=== PATIENT | male | born 1990 | race Caucasian/White ===

== ENCOUNTER 2022-10-06 13:01 | Emergency (ER) | payer OTHER, SELFPAY ==
[2022-10-06 13:13] VITALS: BP 146/100; PULSE 98; RESP 16; TEMP 37.6; O2SAT 99; BMI 28.5
--- NOTE | 2022-10-06 13:17 | DI.RAD.S_ITS ---
PROCEDURE: XR FINGER RT MIN 2V INDICATIONS: injury/deformity TECHNIQUE: AP hand, 2 views of the 3 finger(s) acquired. COMPARISON: [facility], CR, FINGER LT, 01/02/2014, 16:18. FINDINGS: Bones: No fractures or dislocations. No suspicious bony lesions. Soft tissues: No suspicious soft tissue calcifications. IMPRESSION: Normal right finger radiographs Approved by: Konrad Cleaning M.D. on 10/06/2022 at 12:55
--- NOTE | 2022-10-06 15:05 | ED.UPPEXIN ---
HPI - Extremity Injury (Upper) General Chief Complaint: Extremity Injury, Upper Stated Complaint: broken or dislocated finger on RT hand Time Seen by Provider: 10/06/22 15:03 Source: patient Mode of arrival: Ambulatory History of Present Illness HPI narrative: Patient is a 32-year-old male who presents with a right index finger dislocation. He is had multiple episodes of dislocations previously. He was out sledding with his kids. Just landed on it funny. He is right-hand dominant. Related Data Previous Rx's Medication Instructions Recorded dextroamphetamine-amphetamine 5 mg 5 mg PO DAILY PRN inattention #30 09/25/22 tablet (Adderall) tabs dextroamphetamine-amphetamine ER 10 mg PO DAILY #30 caps 09/25/22 10 mg 24hr capsule,extend release (Adderall XR) Allergies Allergy/AdvReac Type Severity Reaction Status Date / Time No Known Drug Allergies Allergy Unknown Verified 06/17/21 11:05 [NO KNOWN DRUG ALLERGIES] Review of Systems Review of Systems Narrative: GENERAL: Denies chills,fever HEENT: Denies throat pain RESPIRATORY: Denies dyspnea, cough, wheezing CARDIOVASCULAR: Denies chest pain, palpitations GASTROINTESTINAL: Denies nausea, vomiting MUSCULOSKELETAL: See HPI SKIN: No rash, no laceration, no pruritus NEUROLOGIC: Denies weakness, dizziness, headache, numbness 8 point review of systems is negative except for those stated above and HPI Patient History Medical History Attention deficit disorder (ADD) in adult Family History Father Diabetes mellitus Osteoarthritis Social History Smoking Status: Never smoker Smokeless tobacco user: other (Nicotine vape rarely) alcohol intake: current (Couple drinks on weekend. ) substance use type: former substance user and marijuana (Former ) Smoking Status: Never smoker Substance Use Type: does not use Exam Initial Vital Signs Initial Vital Signs: Vital Signs Temperature 99.6 F 10/06/22 13:13 Pulse Rate 98 H 10/06/22 13:13 Respiratory Rate 16 10/06/22 13:13 Blood Pressure 146/100 H 10/06/22 13:13 Pulse Oximetry 99 10/06/22 13:13 Oxygen Delivery Method 10/06/22 13:13 GENERAL: Well-appearing, well-nourished and in no acute distress. CARDIOVASCULAR: peripheral pulses in tact, cap refill <2 sec RESPIRATORY: No respiratory distress, speaks in full sentences without difficulty EXTREMITIES: Normal range of motion, no clubbing or edema. Neurovascularly intact Right index finger DI he deformity NEUROLOGICAL: Cranial nerves II through XII grossly intact. Normal gait and speech. SKIN: Warm, dry, no petechiae, no rashes or lesions. Procedures Orthopedic Joint Reduction Joint #1: Side: right Joint Reduction Location: finger Analgesia: none Post-reduction neuro exam: intact and no change Post-reduction vascular: intact Post Reduction X-Ray Obtained: No Course Orders Ordered: ED Orders 10/06/22 13:17 XR finger RT min 2V Stat Vital Signs Vital signs: Vital Signs - 8 hr 10/06/22 13:13 Temperature 99.6 F Pulse Rate 98 H Respiratory Rate 16 Blood Pressure 146/100 H Pulse Oximetry 99 Oxygen Delivery Method Room Air MDM - Extremity Injury (Upper) Imaging Data Extremity x-ray #1: Radiologist's Impression: [address] [place] [id number] XRay Report Addendum Patient: Wilian Paiz MR#: [id number] : 1990 Acct:[id number] Age/Sex: 32 / M Date of Service: 10/06/22 Loc: ED Accession Number: [id number] ?? Procedure: XR finger RT min 2V Ordering Provider: Cynthia Sorensen D.O. ADDENDUMCORRECTION Corrected on: 10/06/2022; ? Following is a corrected report.? Please disregard previous report? ? ? PROCEDURE:? XR FINGER RT MIN 2V ? INDICATIONS:? injury/deformity ? TECHNIQUE:? AP hand, 2 views of the 2nd finger(s) acquired.? ? [facility] ? FINDINGS:? ? Bones:? Complete proximal interphalangeal dislocation is noted with dorsal displacement of the middle phalanx.? Associated soft tissue swelling present. ? Soft tissues:? No suspicious soft tissue calcifications.? ? IMPRESSION:? Complete 2nd finger PIP dorsal dislocation without evidence of fracture ? ? ? Approved by: Konrad Cleaning M.D. on 10/06/2022 at 12:55? Dictated by: Konrad Cleaning M.D. on 10/06/2022 at 13:39 ? ? Approved by: Konrad Cleaning M.D. on 10/06/2022 at 13:39 ? Addendum Dictated By: Konrad Cleaning MD Addendum Signed By: Addendum Cosigned By: DD/ TD/TT: 10/06/22 PROCEDURE:? XR FINGER RT MIN 2V ? INDICATIONS:? injury/deformity ? TECHNIQUE:? AP hand, 2 views of the 3 finger(s) acquired.? ? COMPARISON:? [facility], , FINGER LT, 01/02/2014, 16:18. ? FINDINGS:? ? Bones:? No fractures or dislocations.? No suspicious bony lesions.? ? Soft tissues:? No suspicious soft tissue calcifications.? ? IMPRESSION:? Normal right finger radiographs ? ? ? Approved by: Konrad Cleaning M.D. on 10/06/2022 at 12:55? MDM Narrative Medical decision making narrative: Patient has confirmed dislocated DI P finger. It is easily reduced. Bending and moving it easily. Discharge Plan Departure Patient Disposition: Home Clinical Impression: Dislocated finger Instructions: Finger Dislocation Activity Restrictions/Additional Instructions: *You have been diagnosed with finger dislocation *What to do: Osman-tape ice move bend as needed. *Continue to take medications as directed Motrin 600 mg every 6 hours if needed for [id number] *Follow up with your primary care provider in 2-3 days or call [phone] *Return to ER if you should have increasing pain swelling numbness or any new, worsening or concerning symptoms Prescriptions: No Action dextroamphetamine-amphetamine [Adderall XR] 10 mg capsule,extended release 24hr 10 mg PO DAILY Qty: 30 0RF dextroamphetamine-amphetamine [Adderall] 5 mg tablet 5 mg PO DAILY PRN (Reason: inattention) Qty: 30 0RF Referrals: William Gonzales MD [Primary Care Provider] - Visit Report Forms: Patient Portal/API
== END 2022-10-06 15:14 | disposition home or self-care (01) ==
PROVIDERS: Emergency Provider Emergency Medicine; PCP Family Medicine
DX: S63.286A Dislocation of proximal interphalangeal joint of right little finger, initial encounter (principal); Y93.23 Activity, snow (alpine) (downhill) skiing, snowboarding, sledding, tobogganing and snow tubing
CPT/HCPCS: 26770; 73140; 99281; 99283

== ENCOUNTER → 2023-09-28 13:39 | Outpatient (CLI) | payer OTHER, MEDICAID, SELFPAY | PROVIDERS: PCP Family Medicine; Visit Provider Physician Assistant | DX: J02.9 Acute pharyngitis, unspecified (principal) | CPT/HCPCS: 87070; 87147; 87880 ==

== ENCOUNTER 2024-03-26 20:39 | Emergency (ER) | payer SELFPAY ==
[2024-03-26 20:44] VITALS: BP 177/96; PULSE 105; RESP 18; TEMP 37.8; O2SAT 98; BMI 30.7
[2024-03-26 21:00] VITALS: BP 175/112; PULSE 110; O2SAT 96
--- NOTE | 2024-03-26 21:08 | ED.URI ---
HPI - URI/Sore Throat General Chief Complaint: Upper Respiratory Symptoms Stated Complaint: states can't breathe Time Seen by Provider: 03/26/24 20:48 Source: patient Mode of arrival: Ambulatory History of Present Illness HPI Narrative: 34-year-old male presents with nasal congestion, nonproductive cough, shortness of breath. States that cough was initially productive but now is no longer productive. Has been trying NyQuil and Mucinex for symptoms without significant relief. Patient states that when he lays down he feels like his airway is constricted. Denies history of asthma or lung disease. Related Data Previous Rx's Medication Instructions Recorded amoxicillin 500 mg capsule 500 mg PO BID #20 caps 09/30/23 dextroamphetamine-amphetamine 20 10 mg (1/2 x 20 mg) PO BID #60 tabs 02/10/24 mg tablet (Adderall) trazodone 50 mg tablet 50 mg PO BEDTIME #60 tabs 02/10/24 Allergies Allergy/AdvReac Type Severity Reaction Status Date / Time No Known Drug Allergies Allergy Unknown Verified 02/10/24 15:23 [NO KNOWN DRUG ALLERGIES] Patient History Medical History Insomnia Attention deficit disorder (ADD) in adult Family History Father Diabetes mellitus Osteoarthritis Social History Smoking Status: Never smoker Smokeless tobacco user: other (Nicotine vape rarely) alcohol intake: current (Couple drinks on weekend. ) substance use type: former substance user and marijuana (Former ) Smoking Status: Never smoker Substance Use Type: does not use Exam Initial Vital Signs Initial Vital Signs: Vital Signs Temperature 100.1 F H 03/26/24 20:44 Pulse Rate 105 H 03/26/24 20:44 Respiratory Rate 18 03/26/24 20:44 Blood Pressure 177/96 H 03/26/24 20:44 Pulse Oximetry 98 03/26/24 20:44 Oxygen Delivery Method Room Air 03/26/24 20:44 Const: Awake, alert, no acute distress, nontoxic appearing Cardiac: regular rate, regular rhythm RESP: unlabored, clear bilaterally, no wheezing Skin: Warm, Dry, intact, no rashes Neuro: AO x3, CN II-XII grossly intact, moves all extremities Course Orders Ordered: ED Orders 03/26/24 21:07 Chest [XR chest 2V] Stat Discontinued Medications Albuterol (Albuterol Hfa Prepack) 1 box MISC DIRECTED ONE Stop: 03/26/24 23:11 Last Admin: 03/26/24 23:20 Dose: 1 box Documented By: Albuterol/Ipratropium (Albuterol/Ipratropium 3 Ml Ampul) 3 ml INH NOW ONE Stop: 03/26/24 21:08 Last Admin: 03/26/24 21:22 Dose: 3 ml Documented By: Vital Signs Vital signs: Vital Signs - 8 hr 03/26/24 22:00 03/26/24 23:20 Pulse Rate 108 H 99 H Respiratory Rate 18 Blood Pressure 167/79 H 147/82 H Pulse Oximetry 98 98 Oxygen Delivery Method Room Air Room Air MDM - URI/Sore Throat Differential Diagnosis Differential diagnosis: Likely upper respiratory infection, croup and otitis media Imaging Data Chest x-ray: Radiologist's Impression: PROCEDURE: XR CHEST 2V INDICATIONS: cough, dyspnea x4 days TECHNIQUE: 2 views of the chest were acquired. COMPARISON: None. FINDINGS: Surgical changes and devices: None. Lungs and pleura: Lungs are clear. No pleural effusions or pneumothorax. Mediastinum: Mediastinal contours are normal. Heart size is normal. Bones and chest wall: No suspicious bony abnormalities. Soft tissues appear unremarkable. IMPRESSION: No acute cardiopulmonary abnormality is seen. Approved by: Emmie Rosas M.D.,Ph.D. on 03/26/2024 at 22:59 MDM Narrative Medical decision making narrative: Upper respiratory infection with nonproductive cough. Patient states he feels like he was wheezing, however on lung exam he was clear bilaterally with absolutely no wheezing that I can appreciate. Saturating well on room air. DuoNeb offered for patient comfort, which was accepted. Patient reports subjective improvement after nebulizer treatment, however lung sounds have not significantly changed pre and post treatment. Sent home with pre-pack albuterol inhaler for symptomatic relief. Counseled to use oTC decongestants for symtpomatic relief. Discharge Plan Departure Patient Disposition: Home Clinical Impression: Upper respiratory infection Instructions: DI for Viral Upper Respiratory Infection -- Adult Activity Restrictions/Additional Instructions: You may use the provided inhaler if you feel short of breath. Continue to take baax-ktx-xlxryry decongestants such as Sudafed and Mucinex for your cough and congestion. Fjic-thr-ltgnldf medication such as Robitussin can also help with your cough. Follow up as needed with the primary care doctor. Prescriptions: No Action amoxicillin 500 mg capsule 500 mg PO BID Qty: 20 0RF hepatitis B virus vacc.rec(PF) 20 mcg/mL suspension 1 ml IM ONCE Qty: 1 0RF trazodone 50 mg tablet 50 mg PO BEDTIME Qty: 60 5RF Rx Instructions: 1-2 as directed dextroamphetamine-amphetamine [Adderall] 20 mg tablet 10 mg PO BID Qty: 60 0RF Rx Instructions: administer doses at least 4-6 hours apart Referrals: William Gonzales MD [Primary Care Provider] - Stand Alone Forms: Patient Portal/API
[2024-03-26] MEDS: ALBUTEROL/IPRATROPIUM 3 ML AMPUL INH (21:22)
[2024-03-26 21:30] VITALS: BP 173/89; PULSE 107; O2SAT 107
[2024-03-26 22:00] VITALS: BP 167/79; PULSE 108; O2SAT 98
[2024-03-26 23:20] VITALS: BP 147/82; PULSE 99; RESP 18; O2SAT 98
[2024-03-26] MEDS: ALBUTEROL HFA PREPACK 1 BOX MISC (23:20)
== END 2024-03-26 23:21 | disposition home or self-care (01) ==
PROVIDERS: Emergency Provider Emergency Medicine; PCP Family Medicine
DX: J06.9 Acute upper respiratory infection, unspecified (principal)
CPT/HCPCS: 71046; 94640; 99283

== ENCOUNTER → 2024-08-21 08:39 | Outpatient (CLI) | payer OTHER, MEDICAID, SELFPAY ==
[2024-08-21 10:08] LABS: Add Manual Diff / Slide Review NO; Basophils Absolute Auto 0 /uL (0-100); Basophils Percent Auto 0.3 % (0-2); Eosinophils Absolute Auto 100 /uL (0-450); Hematocrit 43.6 % (41-53); Hemoglobin 14.9 g/dL (13.5-17.5); Lymphocytes Absolute Auto 1700 /uL (1100-4500); Lymphocytes Percent Auto 34.9 % (25-40); Mean Corpuscular HGB Conc 34.3 % (30-36); Mean Corpuscular Hemoglobin 32.1 PG (26-34); Mean Corpuscular Volume 93.6 fL (80-100); Monocytes Absolute Auto 500 /uL (0-900); Monocytes Percent Auto 9.7 % (3-14); Neutrophils Absolute Auto 2500 /uL (1500-7000); Neutrophils Percent Auto 53.1 % (50-75); Platelet Count 228 X10^3/uL (150-400); Red Blood Cell Count 4.65 X10^6/uL (4.5-5.9); Red Cell Distribution Width 13.7 % (11.6-14.8); White Blood Cell Count 4.8 X10^3/uL (4.5-11.0)
[2024-08-21 10:24] LABS: Alanine Aminotransferase 24 IU/L (<50); Albumin 4.4 g/dL (3.5-5.0); Alkaline Phosphatase 53 U/L (38-126); Aspartate Aminotransferase 28 IU/L (17-59); BUN Creatinine Ratio 15.1 (6-22); Bilirubin Total 0.7 mg/dL (0.2-1.3); Blood Urea Nitrogen 14 mg/dL (9-20); Calcium 9.4 mg/dL (8.4-10.2); Carbon Dioxide 24 mmol/L (22-32); Chloride 104 mmol/L (98-107); Estimated Glomerular Filt Rate > 60 mL/min (>60); Globulin 2.2 g/dL (1.7-4.1); Glucose 102 mg/dL (70-100); HEMOLYSIS < 15 (0-50); Potassium 4.8 mmol/L (3.4-5.1); Sodium 137 mmol/L (137-145); Total Protein 6.6 g/dL (6.3-8.2)
[2024-08-21 10:54] LABS: TSH w/ Reflex to FT4 2.17 uIU/mL (0.47-4.68)
== END ==
PROVIDERS: PCP Family Medicine; Referring Provider Family Medicine; Visit Provider Family Medicine
DX: F98.8 Other specified behavioral and emotional disorders with onset usually occurring in childhood and adolescence (principal); G47.00 Insomnia, unspecified; F10.90 Alcohol use, unspecified, uncomplicated; F90.0 Attention-deficit hyperactivity disorder, predominantly inattentive type; F51.01 Primary insomnia
CPT/HCPCS: 36415; 80053; 84443; 85025

== ENCOUNTER → 2025-03-29 08:08 | Outpatient (CLI) | payer OTHER, SELFPAY ==
--- NOTE | 2025-03-29 08:09 | DI.RAD.S_ITS ---
PROCEDURE: XR HAND RT MIN 3V INDICATIONS: right hand injury TECHNIQUE: 3 views of the hand(s) acquired. COMPARISON: None. FINDINGS: Bones: No fractures or dislocations. Old healed 5th metacarpal fracture. Carpal bones are normally aligned. No suspicious bony lesions. Soft tissues: No suspicious soft tissue calcifications. IMPRESSION: No acute bony abnormality. Dictated by: Darren Rdz M.D. on 03/30/2025 at 2:43 Approved by: Darren Rdz M.D. on 03/30/2025 at 2:44
== END ==
PROVIDERS: PCP Family Medicine; Referring Provider Family Medicine; Visit Provider Family Medicine
DX: M79.641 Pain in right hand (principal); M79.89 Other specified soft tissue disorders
CPT/HCPCS: 73130